=== PATIENT | female | born 1965 | race Caucasian/White ===

== ENCOUNTER → 2021-05-25 | Day surgery (SDC) | payer MEDICARE, OTHER ==
[~2021-05-25] MED LIST: AZELASTINE137 MCG/0.; BANOPHEN25 M1 PO; BENADRYL 25MG C25 MG PO; BENZONATATE200 MG PO; CIPRO HC OTIC S10 ML EARBOTH; FAMOTIDINE20 MG PO; FLONASE 0.05% N16 GM; FLUOXETINE HCL20 M1 PO; FLUTICASONE SPRAY; LISINOPRIL20 MG PO; MOBIC7.5 MG PO; PROZAC20 MG PO; TYLENOL325 MG PO; VITAMIN D21250 MCG PO; ZOCOR20 MG PO
[2021-05-25 07:48] LABS: BUN/CREATININE RATIO 21 (0-10)
== END | disposition home or self-care (01) ==
LOC: OR 07:03
PROVIDERS: Otolaryngology
DX: H69.93 Unspecified Eustachian tube disorder, bilateral (principal); H90.6 Mixed conductive and sensorineural hearing loss, bilateral; E78.5 Hyperlipidemia, unspecified; I10 Essential (primary) hypertension; Z20.822 Contact with and (suspected) exposure to COVID-19; Z88.0 Allergy status to penicillin
CPT/HCPCS: 80048; J1100; J2001; J2250; J2405; J2704; J3010; J7120

== ENCOUNTER → 2022-03-01 | Day surgery (SDC) | payer MEDICARE, OTHER ==
[~2022-03-01] MED LIST changes: +BENADRYL ALLERG25 MG PO
== END | disposition home or self-care (01) ==
LOC: OR 06:25
DX: H69.83 Other specified disorders of Eustachian tube, bilateral (principal); H65.23 Chronic serous otitis media, bilateral; H61.22 Impacted cerumen, left ear; F80.89 Other developmental disorders of speech and language
CPT/HCPCS: J1100; J2001; J2250; J2405; J2704; J3010